=== PATIENT | female | born 1990 | race Caucasian/White ===

== ENCOUNTER 2020-02-15 22:32 | Emergency (ER) | payer SELFPAY ==
[~2020-02-15] VITALS: Ht 162.6 cm; Wt 95.0 kg
--- NOTE | 2020-02-15 22:52 | NUR ---
SHE RECEIVED MONISTAT LAST NIGHT BUT DIDN'T PLACE ANY CREAM BECAUSE SHE HAS NEVER USED THE MEDICATION BEFORE AND WASN'T EXACTLY SURE HOW TO USE THE MEDICATION AND ALSO FELT UNCOMFORTABLE DOING THAT.
[2020-02-15 23:06] LABS: URINE HCG NEGATIVE (NEG)
[2020-02-15 23:10] LABS: CLARITY,URINE CLEAR (Clear); COLOR,URINE YELLOW (Yellow); GLUCOSE, URINE NEGATIVE (Neg); KETONES,URINE NEGATIVE (Neg); LEUKOCYTE ESTERASE ,URINE TRACE (Neg); NITRITES, URINE NEGATIVE (Neg); OCCULT BLOOD,URINE NEGATIVE (Neg); PH,URINE 7.5 (4.8-8.0); PROTEIN,URINE TRACE mg/dl (Neg)
[2020-02-15 23:13] LABS: UA COLLECTION TYPE CLN CATCH MIDSTREAM
[2020-02-15 23:14] LABS: BACTERIA,URINE FEW /HPF (Neg); RBC,URINE 0-2 /HPF (0-2); SQUAMOUS EPITHELIAL CELL,UR FEW /LPF (FEW); WBC,URINE 20-30 /HPF (0-4)
[2020-02-15] MEDS ORDERED: CEPH250T PO (23:32)
[2020-02-15 23:46] VITALS: BP 166/112
== END 2020-02-15 23:47 | disposition home or self-care (01) ==
LOC: ER 22:33
DX: N39.0 Urinary tract infection, site not specified (principal); N76.0 Acute vaginitis; R30.0 Dysuria; R11.0 Nausea; Z87.440 Personal history of urinary (tract) infections; Z79.2 Long term (current) use of antibiotics
CPT/HCPCS: 81001; 81025; 87077; 87088; 87186; 99283

== ENCOUNTER 2020-04-08 09:48 | Emergency (ER) | payer MEDICAID ==
[~2020-04-08] VITALS: Ht 162.6 cm; Wt 101.0 kg
[2020-04-08 09:52] VITALS: BP 145/99
[2020-04-08] MEDS ORDERED: ACET-1008 PO (12:26)
[2020-04-08] MEDS ORDERED: PENI250T2 PO (12:26)
== END 2020-04-08 12:35 | disposition home or self-care (01) ==
LOC: ER 09:49
DX: K08.89 Other specified disorders of teeth and supporting structures (principal); Z87.440 Personal history of urinary (tract) infections; Z79.2 Long term (current) use of antibiotics
CPT/HCPCS: 99283

== ENCOUNTER 2020-11-03 16:23 | Emergency (ER) | payer MEDICAID ==
[~2020-11-03] VITALS: Ht 162.6 cm; Wt 101.0 kg
[2020-11-03 16:42] VITALS: BP 133/87
[2020-11-03] MEDS ORDERED: ALBU6.7H9 INH (16:46)
[2020-11-03] MEDS ORDERED: XYL25J TOP (16:46)
[2020-11-03] MEDS ORDERED: NAPR-56 PO (16:46)
== END 2020-11-03 18:44 | disposition home or self-care (01) ==
LOC: ER 16:24
DX: J02.9 Acute pharyngitis, unspecified (principal); Z20.822 Contact with and (suspected) exposure to COVID-19; Z79.899 Other long term (current) drug therapy; Z87.440 Personal history of urinary (tract) infections
CPT/HCPCS: 87635; 99283; C9803

== ENCOUNTER 2024-09-20 13:01 | Emergency (ER) | payer MEDICAID ==
[~2024-09-20] VITALS: Ht 162.6 cm; Wt 114.5 kg
[~2024-09-20 13:01] MED LIST: ALBU6.7H14 INH; XYL25J TOP
[2024-09-20 13:14] VITALS: BP 147/87; PULSE 79; RESP 18; O2SAT 98
[2024-09-20] MEDS ORDERED: PSEU120T84 PO (14:20)
[2024-09-20 14:39] VITALS: TEMP 97.6
== END 2024-09-20 14:45 | disposition home or self-care (01) ==
LOC: ER 13:02
DX: R09.81 Nasal congestion (principal); J00 Acute nasopharyngitis [common cold]; R05.9 Cough, unspecified; Z79.899 Other long term (current) drug therapy
CPT/HCPCS: 99282

== ENCOUNTER 2025-05-25 09:31 | Emergency (ER) | payer MEDICAID ==
[~2025-05-25] VITALS: Ht 162.6 cm; Wt 119.7 kg
[~2025-05-25 09:31] MED LIST changes: +PSEU120T84 PO
[2025-05-25 09:39] VITALS: BP 140/90; PULSE 84; RESP 18; TEMP 97.5; O2SAT 99
--- NOTE | 2025-05-25 11:24 | Physician Documentation ---
History of Present Illness ~ Chief Complaint: Rash Stated Complaint: RASH Time Seen by MD: 09:55 OK to notify your PCP?: Yes Source: patient Mode of Arrival: POV Exam Limitations: no limitations HPI 34-year-old female presents with diffuse rash to the tops of bilateral hands as well as into her upper lip and face. She reports that she woke up yesterday and had a small rash on her left hand which spread throughout the day to her right hand and this morning she woke up in the rash it has spread to her face. She denies any new allergens, soaps, detergents, lotions or beauty products. There is a tiny portion of the rash to the palmar surface of her left ring finger but no other rash on the palmar surface. 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 Medication Reconciliation Allergies: Coded Allergies: No Known Allergies (Unverified , 05/25/25) Scheduled Albuterol Sulfate (Proventil Hfa), 2 PUFFS INH Q6H Lidocaine Hcl (Xylocaine Jelly), 1 APPLIC TOP Q12H Prednisone (Prednisone), 1 TAB PO DAILY Scheduled PRN Hydroxyzine Hcl* (Atarax*), 1 TAB PO Q6H PRN for ITCHING Pseudoephedrine Hcl (Pseudoephedrine), 1 TAB PO Q12H PRN for nasal congestion Past Medical History Past Medical History: UTI Past Surgical History: noncontributory Smoking Status: Current every day smoker Lives In: Home Review of Systems All Other Systems at this time: Reviewed and Negative Physical Exam Vital Signs: RN Vital Signs have been reviewed: Yes, Temperature: 97.5, Source: Temporal, Heart Rate: 84, Respiratory Rate: 18, BP: 140/90, Pulse Oximetry: 99, Weight: 119.700 Oxygen Flow Rate: 0 Pulse Oximetry Reflects: adequate oxygenation Physical Exam General: Alert, no distress. HEENT: No injection, moist mucous membranes. Neck: Full range of motion. Respiratory: No respiratory distress, equal chest rise and fall. Chest: No accessory muscle use. Cardiovascular: Regular rate and rhythm. Gastrointestinal: Nondistended. Extremities: Normal range of motion, no deformity. Neurologic: Oriented x4. Psychiatric: Normal mood and affect. Skin: macular-Papular erythematous blanchable tender rash to bilateral types of hand, upper lip and around left eyebrow/forehead. Progress Results/Orders Reviewed/noted all lab results: Yes Results/Orders Completed Orders - ZOILA ALICEA Prednisone Tablet (Prednisone Tablet) (05/25/25 11:25) Medications Received in ER Medications (Trade) Dose Ordered Sig/Nikki Route PRN Reason Start Time Stop Time Status Last Admin Dose Admin (predniSONE tablet) 60 mg ONCE ONCE PO 05/25/25 11:25 05/25/25 11:30 DC 05/25/25 11:35 60 MG Vital Signs 05/25/25 09:39 Temp 97.5 Pulse 84 Resp 18 B/P (MAP) 140/90 Pulse Ox 99 O2 Flow Rate 0 Medical Decision Making Additional information obtaine: old records Findings She has a diffuse maculopapular rash which is blanchable but she reports it is tender and extremely itchy. I placed her on a prednisone pack with the 1st dose given here in the department. We discussed that she should avoid itching as this can cause a secondary infection. I have written her a work note for 5 days off. No signs of blistering or drainage with this rash. Differential Dx:Considerations: Include: Abscess, Erysipelas, Herpes zoster, Impetigo, Pediculosis, Psoriaisis, Scabies, Scarlet fever Additional Comment Randy Ralph syndrome/TENS Departure Disposition: 01 HOME / SELF CARE / HOMELESS Impression: Primary Impression: Urticaria Additional Impression: Skin irritation Condition: Stable Discharge Instructions: Contact Dermatitis Departure Forms: Excuse form Work or School Excuse beginning now through the following date: May 29, 2025 Referrals: NO PRIMARY CARE PROVIDER (PCP) Prescriptions Hydroxyzine Hcl* (Atarax*) 25 Mg Tablet 1 TAB PO Q6H PRN for ITCHING for 5 Days, #30 TAB Prov: ZOILA ALICEA 05/25/25 Prednisone (Prednisone) 10 Mg Tablet 1 TAB PO DAILY for 5 Days, #15 TAB Day 1:Take 5 tablets by mouth once daily Day 2:Take 4 tablets by mouth once daily Day 3:Take 3 tablets by mouth once daily Day 4:Take 2 tablets by mouth once daily Day 5:Take 1 tablets by mouth once daily Prov: ZOILA ALICEA 05/25/25 Education Educated: Patient Educated regarding: diagnosis, treatment, prognosis, need for follow up Additional Comment Medical Screen Exam This patient recieved a medical screening examination. After reviewing the individual's medical complaints with presenting symptoms and performing an appropriate physical examination, it was determined that no immediate life- threatening emergency medical condition is present. This individual is also not a women having contractions. Signature Scribe Signature: . Attestation: Scribed for Zoila Alicea Computer Graphics Illustrator by Zoila High NP . 05/25/25 11:38 Parts of this note were created using [employer] voice recognition software program. While efforts were made to correct any mistakes made by this voice recognition software program, nonsensical phrases may remain in this note. In addition, there may be errors and syntax, grammar, content and spelling. ZOILA ALICEA ASSISTANT PUBLIC DEFENDER May 25, 2025 11:24
[2025-05-25] MEDS ORDERED: PRED10TA23 PO (11:25)
[2025-05-25] MEDS ORDERED: HYDR-3686 PO (11:27)
== END 2025-05-25 11:49 | disposition home or self-care (01) ==
LOC: ER 09:32
DX: L50.9 Urticaria, unspecified (principal); F17.200 Nicotine dependence, unspecified, uncomplicated
CPT/HCPCS: 99283; J7512

== ENCOUNTER 2025-06-09 10:40 | Emergency (ER) | payer MEDICAID ==
[~2025-06-09] VITALS: Ht 162.6 cm; Wt 121.2 kg
[2025-06-09 10:44] VITALS: BP 147/88; PULSE 84; RESP 16; O2SAT 99
[2025-06-09] MEDS ORDERED: SULF1TAB49 PO (11:29)
--- NOTE | 2025-06-09 11:30 | Physician Documentation ---
History of Present Illness ~ Chief Complaint: Eye Pain Stated Complaint: EYE PAIN Time Seen by MD: 10:57 OK to notify your PCP?: Yes Source: patient Mode of Arrival: POV Exam Limitations: no limitations HPI 34 year old female with chief complaint pustule to her left upper eyelid which started a few days ago. She states she tried to squeeze area but nothing came out. No pre arrival treatment. She states that the pustules causing her upper eyelid to be swollen and it is hard for her to keep her eye open so she is requesting to have two days off of work. No precipitating trauma. No fevers, headaches, vision changes. Medication Reconciliation Allergies: Coded Allergies: No Known Allergies (Unverified , 06/09/25) Scheduled Albuterol Sulfate (Proventil Hfa), 2 PUFFS INH Q6H Lidocaine Hcl (Xylocaine Jelly), 1 APPLIC TOP Q12H Scheduled PRN Pseudoephedrine Hcl (Pseudoephedrine), 1 TAB PO Q12H PRN for nasal congestion Past Medical History Past Medical History: No Pertinent History, UTI Past Surgical History: noncontributory Lives In: Home Occupation: employed Review of Systems All Other Systems at this time: Reviewed and Negative Physical Exam Vital Signs: Temperature: 96.9, Source: Temporal, Heart Rate: 84, Respiratory Rate: 16, BP: 147/88, Pulse Oximetry: 99, Weight: 121.200 Oxygen Flow Rate: 0 Physical Exam General Appearance: Alert, WD/WN. NAD. HEENT: NCAT, PERRLA, EOMI. Left upper eyelid pustule with surrounding erythema and induration measuring about a cm in diameter, no active drainage, no fluctuance. area is tender to palpation. patient is able to actively open her eye, but states it is painful to do so. Neck: Supple, trachea midline. No cervical lad. Cardiovascular: RRR. No m/r/g. Lungs: CTAB. Breathing unlabored Extremities: Normal inspection. No edema. Skin: Warm/dry, normal color Neurological: Alert and oriented x4, normal gait. Psychiatric: Affect congruent with mood. Progress Results/Orders Results/Orders Vital Signs 06/09/25 10:44 Temp 96.9 Pulse 84 Resp 16 B/P (MAP) 147/88 Pulse Ox 99 O2 Flow Rate 0 Medical Decision Making Additional information obtaine: N/A Findings n/a Ear Diff. Dx: Considerations: Unlikely: Other Eye Diff. Dx: Considerations: Include: [place], Conjuctivits-allergic, Conjuctivitis-bacterial, Conjuctivits-chlamydial, Conjuctivitis-viral, Corneal abrasion, Corneal laceration, Corneal ulceration, Foreign body-conjuctiva, Foreign body-corneal, Foreign body-intraocular, Foreign body-lid, Glaucoma, Globe rupture, Hordeolum, Iritis, Orbital cellulitis, Periobital cellulitis, Retinal artery occulsion, Retinal vein occlusion, Rust ring, Subconjunctival hem, Ultraviolet keratitis, Uveitis, Vitreous hemorrhage Nose Diff. Dx: Considerations: Unlikely: Other Tooth Diff. Dx: Considerations: Unlikely: Other Throat Diff Dx: Considerations: Unlikely: Other Additional Comment no concern for post orbital cellulitis as no pain with EOMI, afebrile, no vision changes Departure Time of Disposition: 11:27 Disposition: 01 HOME / SELF CARE / HOMELESS Impression: Primary Impression: Abscess of left eyelid Qualified Codes: H00.034 - Abscess of left upper eyelid Condition: Stable Discharge Instructions: Abscess, Care After Additional Instructions: if you develop fever, eyeball pain when you move your eyeball around, vision changes or any other other concerning symptoms return to the ER right away Departure Forms: Excuse form Work or School Excused From: Work Excuse beginning now through the following date: Jun 11, 2025 May Return but still avoid physical Activity from now until: Jun 13, 2025 Referrals: NO PRIMARY CARE PROVIDER (PCP) Prescriptions Sulfamethoxazole/Trimethoprim (Bactrim Ds Tablet) 800 Mg-160 Mg Tablet 1 TAB PO Q12H for 10 Days, #20 TAB Prov: PERFECTO COTA 06/09/25 Education Educated: Patient Educated regarding: diagnosis, treatment Signature Scribe Signature: x Attestation: PERFECTO Martin Jun 09, 2025 11:29
[2025-06-09 11:46] VITALS: TEMP 96.9
== END 2025-06-09 11:49 | disposition home or self-care (01) ==
LOC: ER 10:41
DX: H00.034 Abscess of left upper eyelid (principal); Z79.899 Other long term (current) drug therapy
CPT/HCPCS: 99283